=== PATIENT | female | born 1965 ===

== ENCOUNTER 2021-07-07 12:25 | Day surgery (SDC) | payer OTHER ==
[~2021-07-07 12:25] MED LIST: COZAAR50 MG PO; D3 + K2 DOTS 11 EACH PO; HYDRODIURIL12.5 MG PO; LIPITOR80 MG PO; METFORMIN HCL500 M3 PO
== END 2021-07-07 22:00 | disposition home or self-care (01) ==
LOC: CIR.AMB 12:25
PROVIDERS: ATTEND Urology
DX: N20.0 Calculus of kidney (principal); Z20.822 Contact with and (suspected) exposure to COVID-19